=== PATIENT | female | born 1965 | race Caucasian/White ===

== ENCOUNTER → 2020-07-31 09:08 | Outpatient (BNVA) | payer SELFPAY | PROVIDERS: Family Provider Internal Medicine; Referring Provider Internal Medicine; Visit Provider Internal Medicine | DX: E21.0 Primary hyperparathyroidism (principal); E55.9 Vitamin D deficiency, unspecified; E89.0 Postprocedural hypothyroidism; Z86.39 Personal history of other endocrine, nutritional and metabolic disease | CPT/HCPCS: 99204 ==

== ENCOUNTER → 2021-02-06 10:35 | Outpatient (BNVA) | payer SELFPAY | PROVIDERS: Family Provider Internal Medicine; Visit Provider Internal Medicine | DX: E21.0 Primary hyperparathyroidism (principal); E55.9 Vitamin D deficiency, unspecified; E89.0 Postprocedural hypothyroidism; Z86.39 Personal history of other endocrine, nutritional and metabolic disease | CPT/HCPCS: 99214 ==

== ENCOUNTER 2021-06-04 20:49 | Emergency (ER) | payer MEDICAID, SELFPAY ==
[2021-06-04 21:39] VITALS: BP 170/95; PULSE 70; RESP 18; TEMP 36.6; O2SAT 100; BMI 42.5
[2021-06-05 03:10] VITALS: BP 207/83; PULSE 64; RESP 17; O2SAT 100
--- NOTE | 2021-06-05 03:22 | ED_ITS ---
HPI - Allergic Reaction General: Chief complaint: Allergic Reaction Stated complaint: poss allergic reaction Time Seen by Provider: 06/05/21 03:15 Source: patient Mode of arrival: ambulatory Limitations: no limitations History of Present Illness: HPI narrative: 56-year-old female states that she has had a rash to her arms and neck over the last day. She states that she was outside work and believes she is came to contact something she is allergic to. States that it is pruritic in nature. She is taken Benadryl with some improvement. Denies any shortness of breath. Denies any chest pain or vomiting or diarrhea. complaint: allergic reaction Associated symptoms: Deny abdominal pain, nausea or vomiting Review of Systems Const: Denies: fever(s), chills, body aches or change in appetite Eyes: Denies: blurry vision or eye discomfort ENMT: Denies: throat pain or dental pain Card: Denies: chest pain Resp: Denies: dyspnea GI: Denies: abdominal pain, nausea, vomiting or diarrhea : Denies: dysuria Musc: Denies: neck pain or back pain Skin/Breast: Reports: rash Neuro: Denies: headache(s) Psych: Denies: depression Jan/Lymph: Denies: easy bruising All/Imm: Denies: urticaria PFSH ED PFSH: Medical History Depression Hypertension Hypothyroidism Surgical History H/O partial thyroidectomy Family History Mother Stroke Brother Diabetes Father CAD (coronary artery disease) Hypothyroidism Myocardial infarction Social History Smoking and tobacco status: current every day smoker Quit status (tobacco): not considering quitting Alcohol intake: never Physical Exam Const: COMMON NORMALS: no acute distress, patient oriented x3 and healthy appearing HENMT: COMMON NORMALS: normocephalic and atraumatic HEAD & SCALP: normocephalic and atraumatic Eye: COMMON NORMALS: Equal, round and reactive pupils present and EOMs intact bilaterally PUPIL: Yes Equal, round and reactive pupils present Neck/C-Spine: COMMON NORMALS: full ROM and supple Chest: COMMONS NORMALS: normal inspection of the chest and normal palpation of entire chest wall Resp: COMMON NORMALS: normal respiratory effort, No retractions, No use of accessory muscles and clear to auscultation bilaterally AUSCULTATION: clear to auscultation bilaterally Cardio: COMMON NORMALS: regular rate, regular rhythm and No murmurs present (Cardio) RATE: regular rate RHYTHM: regular rhythm GI: COMMON NORMALS: Normal to inspection, nondistended, normoactive bowel sounds present, Soft to palpation, non-tender and no masses PALPATION: Yes Soft to palpation Extremity: COMMON NORMALS: normal to inspection and full ROM Neuro: COMMON NORMALS: patient oriented x3, moves all extremities and no focal motor deficits Psych: COMMON NORMALS: mental status grossly normal, Normal thought process present and cooperative THOUGHT PROCESS: Normal thought process present Skin: COMMON NORMALS: no wounds NARRATIVE SKIN EXAM: Urticarial rash to trunk and arms Course Vital Signs: Vital signs: Vital Signs Temperature 97.9 F 06/04/21 21:39 Pulse Rate 64 06/05/21 03:10 Respiratory Rate 17 06/05/21 03:10 Blood Pressure 207/83 06/05/21 03:10 Pulse Oximetry 100 06/05/21 03:10 MDM - Allergic Reaction MDM Narrative: Medical decision making narrative: Patient presents here with urticaria to chest back and arms. Patient refused an IV here and states she wanted oral medicine to go home. I did give her prednisone Pepcid and Benadryl and will discharge her on prednisone. She has no signs of severe anaphylaxis. She is to follow-up with PCP and return if worsening. Discharge Plan Discharge Patient Disposition: Home Clinical Impression: Allergic reaction Qualifiers: Encounter type: initial encounter Qualified Code(s): T78.40XA - Allergy, unspecified, initial encounter Condition: Stable Prescriptions: New prednisone 50 mg tablet 50 mg PO DAILY Qty: 5 RF: 0 No Action levothyroxine 75 mcg tablet 75 mcg PO DAILY RF: 0 lisinopril 20 mg tablet 20 mg PO DAILY RF: 0 metoprolol tartrate 25 mg tablet 25 mg PO BID RF: 0 furosemide 20 mg tablet 20 mg PO DAILY RF: 0 albuterol sulfate [Ventolin HFA] 90 mcg/actuation HFA aerosol inhaler 2 puff INHALATION QID RF: 0 venlafaxine 150 mg capsule,extended release 24hr 150 mg PO DAILY RF: 0 Discharge Orders: Discharge ED (Routine); Ordered 06/05/21 Ordered By: Dago Buckley Referrals: Quiana Roberson MD [Primary Care Provider] - 1-3 days Discharge Diet: Advance as tolerated Discharge Activity: Resume usual activity Patient Instructions: Urticaria (ED) Coding Level of Care Code ED Manager Games for Jimmy Daley
[2021-06-05] MEDS: predniSONE 20 mg Tablet 60 MG PO (03:33)
[2021-06-05] MEDS: diphenhydrAMINE 50 mg/mL SDV 1mL IM (03:35)
[2021-06-05] MEDS: famotidine 20 mg Tablet 40 MG PO (03:35)
== END 2021-06-05 03:56 | disposition home or self-care (01) ==
PROVIDERS: Emergency Provider Emergency Medicine; PCP Internal Medicine
DX: T78.40XA Allergy, unspecified, initial encounter (principal); I10 Essential (primary) hypertension; F17.210 Nicotine dependence, cigarettes, uncomplicated
CPT/HCPCS: 96372; 99283; J1200; J7512

== ENCOUNTER 2021-06-06 11:35 | Emergency (ER) | payer MEDICAID, SELFPAY ==
[2021-06-06 11:45] VITALS: BP 153/83; PULSE 96; RESP 22; TEMP 36.8; O2SAT 94; BMI 41.5
[2021-06-06] MEDS: diphenhydrAMINE 50 mg/mL SDV 1mL IVP (12:06)
[2021-06-06] MEDS: famotidine 20 mg/2 mL INJ IVP (12:06)
[2021-06-06] MEDS: lidocaine 2% INJ 20 mL INJECTION (12:07)
[2021-06-06 12:09] VITALS: BP 132/72; PULSE 83; RESP 16; O2SAT 98
[2021-06-06 12:21] LABS: Basophils # 0.1 10^3/uL (0.0-0.1); Basophils % 0.5 %; Eosinophils # 0.1 10^3/uL (0.0-0.8); Eosinophils % 0.7 %; Hematocrit 47.8 % (37.0-47.0); Hemoglobin 15.5 g/dL (11.5-15.3); Lymphocytes # 3.4 10^3/uL (0.8-4.8); Lymphocytes % 22.4 %; Mean Corpuscular HGB Conc 32.4 g/dL (30.0-36.0); Mean Corpuscular Hemoglobin 28.7 pg (28.0-34.0); Mean Corpuscular Volume 88.4 fL (81-99); Mean Platelet Volume 9.1 fL (7.4-10.4); Monocytes % 6.7 %; Neutrophils # 10.34 10^3/uL (1.8-7.7); Neutrophils % 67.9 %; Nucleated Red Blood Cells % 0 %; Platelet Count 400 10^3/cmm (130-400); Red Blood Count 5.41 10^6/uL (4.1-5.3); Red Cell Distribution Width 14.4 % (12.1-15.1); White Blood Count 15.2 10^3/uL (4.0-10.0)
[2021-06-06 12:25] LABS: Anion Gap 13.2 (5-19); Blood Urea Nitrogen 10 mg/dL (6-20); Calcium 9.8 mg/dL (8.5-10.5); Carbon Dioxide 25 mmol/L (22-29); Chloride 104 mmol/L (98-107); Glomerular Filtration Rate 73.9 mL/min (90-130); Glucose 113 mg/dL (65-115); Osmolality Calculated 286 mOsm/kg (285-295); Potassium 4.2 mmol/L (3.5-5.1); Sodium 138 mmol/L (136-145)
--- NOTE | 2021-06-06 12:41 | W.ED.ALLEREA ---
HPI - Allergic Reaction General: Chief complaint: Allergic Reaction Stated complaint: ALLERGIC REACTION Time Seen by Provider: 06/06/21 11:53 History of Present Illness: HPI narrative: Patient is a 56-year-old female with blood allergies to medicine including penicillin and sulfa drugs who initially presented to the emergency room 06/04/2021 for complaints of urticaria in the arms and neck. She was given p.o. medicine including Benadryl and a prescription for steroid. Since then, patient has noticed facial swelling that is now since discharge. She reports having some shortness of breath but no drooling no stridor voice change or difficulty swallowing. Patient represented to the emergency room given swelling the face, and persistent rash in the same distribution. Denies any wheezing or GI symptoms with nausea vomiting, diarrhea. Onset: 3 days ago Duration: 3 days Severity: moderate/severe Location: home Review of Systems Narrative: Constitutional: no subjective fever, no generalized weakness HEENT: +eye lid swelling, facial swelling, CV: No chest pain, no palpitations PULM: no cough, nodyspnea. GI: No abdominal pain, no N/V/D. : No dysuria MSKEL: No muscle pain SKIN: No new rashes, no lesions. NEURO: No headache, no focal weakness. HEME: No visible bruises PSYCH: Normal mood PFSH ED PFSH: Medical History Depression Hypertension Hypothyroidism Surgical History H/O partial thyroidectomy Family History Mother Stroke Brother Diabetes Father CAD (coronary artery disease) Hypothyroidism Myocardial infarction Social History Smoking and tobacco status: current every day smoker Quit status (tobacco): not considering quitting Alcohol intake: never Physical Exam Narrative: EXAM NARRATIVE: Const: General obesity Head: Atraumatic Eyes: PERRL, conjunctiva without injection, +perirobital edema ENT: MMM, oral airway intact, patient is able to phonate without any difficulty, no stridor, Mallapati 4 airway NECK: Supple without lymphadenopathy, short neck LUNGS: LCAB, no crackles/rhonchi or rales CV: RRR ABDOMEN: Soft, nontender in all quadrants, no guarding or rebound tenderness EXTREMITY: Normal ROM SKIN: [place] on the arms and chest NEURO: Awake and alert. No focal motor deficits. PSYCH: Normal mood and affect. Course Vital Signs: Vital signs: Vital Signs Temperature 98.2 F 06/06/21 11:45 Pulse Rate 72 06/06/21 16:20 Respiratory Rate 18 06/06/21 16:20 Blood Pressure 147/72 06/06/21 16:20 Pulse Oximetry 95 06/06/21 16:20 MDM - Allergic Reaction MDM Narrative: Medical decision making narrative: Patient is a 56-year-old female with allergies to penicillin and sulfa medication presenting to the emergency room for concerns of worsening facial swelling in the setting of persistent urticaria after prior visit 2 days ago. On exam, patient has significant facial swelling involving the eyelid. Oropharyngeal exam did not show any signs of edema, tongue protrusion, or posterior pharynx swelling. 2% lidocaine atomizer was used to numb up the back of the throat. Visual inspection with glidescope showed clear airway without edema or swelling. Patient is observed in the emergency room continues to be satting greater than 95%. No signs of stridor or increased work of breathing. Patient received 20 mg of Pepcid, 125 mg Solu-Medrol, 50 mg IV Benadryl and fluids. Given nonimprovement, high risk for decompensation, presence of urticaria with oral airway involvement to suggest possible delayed anaphylaxis, as well as difficult airway, patient will be admitted to the hospital for serial observation. Case discussed ER provider Dr. Dubois from [facility] with plans for transfer and serial observation. Patient received 60mg of prednisone, 20mg of pepcid, and 50mg of benadryl prior to transfer. Dispsoition: Transferred for serial observation . Lab Data: Labs: Lab Results 06/06/21 06/06/21 06/06/21 Range/Units 11:50 11:50 12:50 WBC 15.2 H (4.0-10.0) 10^3/ uL RBC 5.41 H (4.1-5.3) 10^6/u L Hgb 15.5 H (11.5-15.3) g/dL Hct 47.8 H (37.0-47.0) % MCV 88.4 (81-99) fL MCH 28.7 (28.0-34.0) pg MCHC 32.4 (30.0-36.0) g/dL RDW 14.4 (12.1-15.1) % Plt Count 400 (130-400) 10^3/c mm MPV 9.1 (7.4-10.4) fL Neut % (Auto) 67.9 % Lymph % (Auto) 22.4 % Dougherty % (Auto) 6.7 % Eos % (Auto) 0.7 % Baso % (Auto) 0.5 % Neut # (Auto) 10.34 H (1.8-7.7) 10^3/u L Lymph # (Auto) 3.4 (0.8-4.8) 10^3/u L Dougherty # (Auto) 1.0 H (0.2-0.9) 10^3/u L Eos # (Auto) 0.1 (0.0-0.8) 10^3/u L Baso # (Auto) 0.1 (0.0-0.1) 10^3/u L Nucleated RBC % (a uto) 0 % Nucleated RBCs # 0.0 /100WBC Sodium 138 (136-145) mmol/L Potassium 4.2 (3.5-5.1) mmol/L Chloride 104 (98-107) mmol/L Carbon Dioxide 25 (22-29) mmol/L Anion Gap 13.2 (5-19) BUN 10 (6-20) mg/dL Creatinine 0.8 (0.5-0.9) mg/dL GFR Calculation 73.9 L (90-130) mL/min Glucose 113 (65-115) mg/dL Calculated Osmolal ity 286 (285-295) mOsm/k g Calcium 9.8 (8.5-10.5) mg/dL SARS-CoV-2 Ag (Rap id) Negative (Negative) Discharge Plan Discharge Patient Disposition: Transfer to ED Clinical Impression: [id number] Condition: Stable Prescriptions: No Action levothyroxine 75 mcg tablet See Rx Instructions .ROUTE .COMPLEX RF: 0 lisinopril 20 mg tablet 20 mg PO DAILY RF: 0 metoprolol tartrate 25 mg tablet 25 mg PO BID RF: 0 furosemide 20 mg tablet 20 mg PO DAILY RF: 0 albuterol sulfate [Ventolin HFA] 90 mcg/actuation HFA aerosol inhaler 2 puff INHALATION QID PRN (Reason: Shortness Of Breath) RF: 0 venlafaxine 150 mg capsule,extended release 24hr 150 mg PO DAILY RF: 0 Aspir-81 81 mg Tablet,Delayed Release (Dr/Ec) 162 - 243 mg PO PRN RF: 0 prednisone 50 mg tablet 50 mg PO DAILY RF: 0 Referrals: Quiana Roberson MD [Primary Care Provider] - Coding Level of Care Code ED Radiation Therapy Technician for [facility]
--- NOTE | 2021-06-06 12:42 | PC.PHAR ---
PT STATES SHE TAKES CARE OF HER OWN MEDICATIONS-PT STATES SHE WAS TAKING CLINDAMYCIN FILLED ON 05/22/21 7D/S PT STATES SHE HASNT TAKEN SINCE 05/31 OR 06/01 PT STATES SHE HAS ONE CAP LEFT--PT STATES SHE NORMALLY DOESNT TAKE ASPIRIN BUT HAS BEEN LATELY
[2021-06-06 13:32] LABS: SARS Covid-2 Antigen Negative (Negative)
[2021-06-06 13:54] VITALS: BP 137/77; PULSE 75; RESP 22; O2SAT 96
[2021-06-06 16:20] VITALS: BP 147/72; PULSE 72; RESP 18; O2SAT 95
[2021-06-06] MEDS: famotidine 20 mg Tablet PO (21:45)
[2021-06-06] MEDS: predniSONE 20 mg Tablet 60 MG PO (21:45)
[2021-06-06] MEDS: diphenhydrAMINE 50 mg Capsule PO (21:45)
[2021-06-06 23:53] VITALS: BP 146/75; PULSE 76; RESP 16; TEMP 37; O2SAT 100
[2021-06-07 16:15] LABS: Coronavirus Test Green County Not Detected
== END 2021-06-06 23:58 ==
PROVIDERS: Emergency Provider Emergency Medicine; PCP Internal Medicine
DX: L50.8 Other urticaria (principal); Z79.82 Long term (current) use of aspirin; I10 Essential (primary) hypertension; F17.210 Nicotine dependence, cigarettes, uncomplicated; Z20.822 Contact with and (suspected) exposure to COVID-19
CPT/HCPCS: 80048; 85025; 87426; 87635; 96374; 96375; 99284; J1200; J2930; J3490; J7512; Q0163

== ENCOUNTER 2021-12-18 10:48 | Outpatient (CLI) | payer BC, SELFPAY ==
[2021-12-18 11:49] LABS: Free T4 Free Thyroxine 1.51 ng/dL (0.82-1.77); Thyroid Stimulating Hormone 2.43 uIU/mL (0.27-4.20)
[2021-12-18 11:54] LABS: Calcium 11.3 mg/dL (8.5-10.5)
[2021-12-18 12:01] LABS: Parathyroid Hormone 94.5 pg/mL (15-65)
[2021-12-18 12:52] LABS: 25 Hydroxy Vitamin D 31 ng/mL (30-100)
== END 2021-12-18 10:49 | disposition home or self-care (01) ==
PROVIDERS: PCP Internal Medicine; Visit Provider Internal Medicine
DX: E89.0 Postprocedural hypothyroidism (principal); E21.0 Primary hyperparathyroidism; E55.9 Vitamin D deficiency, unspecified; Z86.39 Personal history of other endocrine, nutritional and metabolic disease
CPT/HCPCS: 82306; 82310; 83970; 84439; 84443

== ENCOUNTER 2022-01-21 13:50 | Outpatient (CLI) | payer BC, MEDICAID, SELFPAY ==
--- NOTE | 2022-01-21 14:45 | XR_ITS ---
WS: [id number] SCREENING DEXA SCAN [employer] CLINICAL INFORMATION: Check for changes COMPARISON: None. FINDINGS: The L1-L4 bone mineral density measures 1.123 g/cm2. This corresponds to a T score score of -0.5 and Z score of -0.6. Left femoral neck bone mineral density measures 1.089 g/cm2. This corresponds to a T score of 0.6 and Z score of 0.6. Right femoral neck bone mineral density measures 0.982 g/cm2. This corresponds to a T score -0.2of an d Z score of -0.2. Mean femoral neck bone mineral density measures 1.036 g/cm2. This corresponds to a T score of 0.2 and Z score of 0.2. XR/XR DEXA axial skeleton* [id number] IMPRESSION: Normal bone mineralization. Patient's FRAX calculated 10 year probability for major osteoporotic fracture i s 10.5 % and osteoporotic hip fracture is 1.2%.
== END 2022-01-21 13:51 | disposition home or self-care (01) ==
LOC: RAD 13:52
PROVIDERS: PCP Internal Medicine; Visit Provider Internal Medicine
DX: E21.0 Primary hyperparathyroidism (principal)
CPT/HCPCS: 77080

== ENCOUNTER → 2022-02-17 14:06 | Outpatient (BNVA) | payer BC, MEDICAID, SELFPAY | PROVIDERS: PCP Internal Medicine; Visit Provider Internal Medicine | DX: E89.0 Postprocedural hypothyroidism (principal); E21.0 Primary hyperparathyroidism; F17.210 Nicotine dependence, cigarettes, uncomplicated; Z86.39 Personal history of other endocrine, nutritional and metabolic disease | CPT/HCPCS: 99214 ==

== ENCOUNTER 2022-09-11 10:57 | Outpatient (CLI) | payer BC, MEDICAID, SELFPAY ==
--- NOTE | 2022-09-11 11:17 | XR_ITS ---
WS: [id number] Right knee, 4 views, 09/11/2022 Clinical Data: PAIN IN R KNEE Comparison: None. Findings: No fractures or dislocations are seen. There is narrowing of the medial joint compartment with spurri ng of the medial and lateral femoral condyles and of the medial and lateral tibial plateau. There is a slight subluxation laterally of the tibia relative to the femur. The patella shows posterior spurri ng. The soft tissues are unremarkable. There is a incidental soft tissue calcification adjacent to the medial distal right femur. XR/XR knee RT 4V [id number] Impression: Mild osteoarthritis of the right knee. Kellgren-Waylon Classification: grade 2 (minimal): definite osteophytes and p ossible joint space narrowing
== END 2022-09-11 10:58 | disposition home or self-care (01) ==
LOC: RAD 10:59
PROVIDERS: PCP Internal Medicine; Visit Provider Internal Medicine
DX: M17.11 Unilateral primary osteoarthritis, right knee (principal)
CPT/HCPCS: 73564

== ENCOUNTER 2024-11-18 07:50 | Outpatient (CLI) | payer BC, MEDICAID, SELFPAY ==
--- NOTE | 2024-11-18 08:02 | NM_ITS ---
WS: [id number] EXAMINATION: NM parathyroid [id number] ORDER DATE: 11/18/2024 8:00 AM COMPARISON: 2019 HISTORY: HYPERPARATHYROIDISM TECHNIQUE: Parathyroid scintigraphy with 20.1 of technetium 99m administered. AP and oblique views obtained with and without chin and suprasternal notch markers. Initial and 2 hour delayed imagi ng acquired. FINDINGS: Normal salivary gland uptake. Normal RIGHT thyroid uptake. Suspected LEFT partial thyroidectomy with no significant uptake in the LEFT thyroid bed. Increased activity just above the suprasternal notch e ccentric to the LEFT which persists on the delayed imaging suspicious for parathyroid adenoma. NM/NM parathyroid [id number] IMPRESSION: Findings suspicious for LEFT parathyroid adenoma with persistent uptake on the delayed images similar location compared to 2019 just above the suprasternal no tch eccentric to the LEFT
== END 2024-11-18 07:51 | disposition home or self-care (01) ==
LOC: RAD 07:53
PROVIDERS: PCP Internal Medicine; Visit Provider Internal Medicine
DX: E21.3 Hyperparathyroidism, unspecified (principal); R93.89 Abnormal findings on diagnostic imaging of other specified body structures
CPT/HCPCS: 78070; A9500

== ENCOUNTER 2025-07-12 11:09 | Outpatient (CLI) | payer BC, MEDICAID, SELFPAY ==
--- NOTE | 2025-07-12 11:16 | CT_ITS ---
WS: [id number] LDCT LUNG CANCER SCREENING HISTORY: HX OF TOBACCO USE TECHNIQUE: Axial imaging performed from the apices to 1 cm below the costophrenic angles. Coronal and sagittal reformats are submitted with axial MIP series. All CT scans at [facility] use at least one of these dose optimization techniques: automated exposure control; mA and/or kV adjustment per patient size (includes targeted exams where dose is matched to clinical indication); or iterative reconstruction. DLP: 115.50 mGy.cm DIvol: Mean CTDIvol: 2.90 (mGy) COMPARISON: None available. Diagnostic quality: Satisfactory Lungs: Well-aerated lungs. No pulmonary nodule or mass. No groundglass attenuation. No endobronchial lesions. Heart: Normal size heart with no pericardial effusion.. Other findings: Mild atherosclerosis aorta. Normal size aorta and pulmonary artery. No mediastinal or hilar adenopathy. LEFT adrenal 1.7 cm adrenal myelolipoma. RIGHT adrenal gland is normal. CT/CT lung screening [id number] IMPRESSION: LUNG-RADS: 1S-Negative with Significant Findings FOLLOW UP: 12 Month: Continue annual screening with LDCT OTHER FINDINGS (S MODIFIER): LEFT adrenal myelolipoma.
== END 2025-07-12 11:10 | disposition home or self-care (01) ==
LOC: RAD 11:10
PROVIDERS: PCP Internal Medicine; Visit Provider Internal Medicine
DX: Z87.891 Personal history of nicotine dependence (principal); I70.0 Atherosclerosis of aorta
CPT/HCPCS: 71271